=== PATIENT | male | born 1955 | race Caucasian/White ===

== ENCOUNTER 2024-11-26 13:38 | Emergency (ER) | payer MEDICARE, MEDICAID ==
[~2024-11-26] VITALS: Ht 172.7 cm; Wt 97.5 kg
[2024-11-26] MEDS ORDERED: PSEU-298 PO (15:35)
[2024-11-26] MEDS ORDERED: IBUP-1490 PO (15:35)
[2024-11-26] MEDS ORDERED: AMOX-430 PO (15:35)
[2024-11-26 16:03] VITALS: BP 128/78; TEMP 98.2; O2SAT 99
== END 2024-11-26 16:03 | disposition home or self-care (01) ==
LOC: ER 13:45
DX: G50.1 Atypical facial pain (principal); J32.0 Chronic maxillary sinusitis; I10 Essential (primary) hypertension; E78.5 Hyperlipidemia, unspecified; N40.0 Benign prostatic hyperplasia without lower urinary tract symptoms
CPT/HCPCS: 70486-TC